=== PATIENT | female | born 1950 | race Caucasian/White ===

== ENCOUNTER 2021-05-11 09:58 | Outpatient (RCR) | payer MEDICARE, SELFPAY ==
--- NOTE | 2021-05-11 10:42 | PTOPEVAL ---
Thank you for referring MIKE PERALTA to [facility].? The patient is scheduled to be seen for therapy? ____x/week for ___ weeks. Please review, sign, date and return this plan of care BELEM. I agree with and certify that the following plan of care is medically necessary. Referring Physician Date Admitting Provider: Attending Provider: JODI CANO Referring Provider: [facility] Outpatient Evaluation Start: 05/11/21 10:08 Freq: Status: Active Protocol: Document 05/11/21 10:05 MAGGY (Rec: 05/11/21 10:41 MAGGY [email or web address]) Therapy Assessment Status Assessment Status Assessment Status Evaluation Evaluation Information Problem Diagnosis R knee pain, pre TKA Onset 05/08/21 Additional Evaluation Detail LEFS = 41% functionally declined Subjective Information patient reports she has been Query Text:As Reported By Patient/ having pain in the R knee for Family years. she reports she has put off having knee replacement for too long. she reports she is scheduled for surgery on . she reports she has family at home that will be able to care for her and get her to appointments after surgery. she reports she has difficulty with steps, walking for long distances, and riding a bike. Prior Level of Function Comments Additional Prior Level of Function patient reports she is active Comments and likes to ride her bike which she has not been able to do for more than a year. Pain Assessment Timing of Pain Assessment Timing of Pain Assessment Assessment Pain Scale Pain Scale Used Numeric (1 - 10) Self Report Pain Assessment Right Knee(s) Reported Pain Level 2 Greatest Pain Intensity 5 Pain Score Pain Score 2: Self Report Interventions Used Interventions Used By Clinicians Activity or ADL's,Medication Lower Extremity Range of Motion General Lower Extremity Range of Motion Gross Lower Extremity Range of Motion -6 degrees arom L knee ext Comments 126 degrees arom L knee flex -4 degrees arom R knee ext 121 degrees arom R knee flex Lower Extremity Muscle Strength Testing General Lower Extremity Strength Gross Lower Extremity Strength 4+/5 bilateral hip flex 5/5 L knee strength 4/5 R knee ext
--- NOTE | 2021-05-25 11:08 | PTOPEVAL ---
Thank you for referring MIKE PERALTA to [facility].? The patient is scheduled to be seen for therapy? ____x/week for ___ weeks. Please review, sign, date and return this plan of care BELEM. I agree with and certify that the following plan of care is medically necessary. Referring Physician Date Admitting Provider: Attending Provider: JODI CANO Referring Provider: KALA Outpatient Evaluation Start: 05/11/21 10:08 Freq: Status: Active Protocol: Document 05/25/21 10:11 [facility] (Rec: 05/25/21 11:07 [facility] [email or web address]) Therapy Assessment Status Assessment Status Assessment Status Re-evaluation Evaluation Information Problem Diagnosis R knee pain, pre TKA Onset 05/08/21 Additional Evaluation Detail LEFS = 42% functionally declined Subjective Information patient rpeorts she feels Query Text:As Reported By Patient/ pretty good this date. she Family reports she is still scheduled to have her R knee replaced on this coming Friday. Pain Assessment Timing of Pain Assessment Timing of Pain Assessment Assessment Pain Scale Pain Scale Used Numeric (1 - 10) Self Report Pain Assessment Right Knee(s) Reported Pain Level 1 Pain Score Pain Score 1: Self Report Interventions Used Interventions Used By Clinicians Activity or ADL's,Education, Exercise,Medication Lower Extremity Range of Motion General Lower Extremity Range of Motion Gross Lower Extremity Range of Motion -4 degrees AROM R knee ext Comments 122 degrees AROM R knee flex Lower Extremity Muscle Strength Testing General Lower Extremity Strength Gross Lower Extremity Strength 4+/5 R hip flex 5/5 R knee ext 4+/5 R knee flex 5/5 R ankle DF Muscle Length Testing Muscle Length Testing Left Hamstring Length 10 Query Text:(90 - 90 Position) Right Hamstring Length 10 Query Text:(90 - 90 Position) Gait Assessment Gait Assessment Additional Ambulation Comments patient ambulates with more equal stance time bilaterally this date. General Exercise General Exercises Exercise Description -nustep 10 minutes level 5 to Query Text:Record Sets, Reps, promote reciprocal gait Resistance, and Position mechanics and knee mobility, and to improve LE strength and endurance -heel and toe raises x30 each bilat -hip abd and ext x30 each
--- NOTE | 2021-05-30 10:55 | PTOPEVAL ---
Thank you for referring MKIE PERALTA to [facility].? The patient is scheduled to be seen for therapy? ____x/week for ___ weeks. Please review, sign, date and return this plan of care BELEM. I agree with and certify that the following plan of care is medically necessary. Referring Physician Date Admitting Provider: Attending Provider: JODI CANO Referring Provider: KALA Outpatient Evaluation Start: 05/11/21 10:08 Freq: Status: Active Protocol: Document 05/30/21 10:00 Shonda (Rec: 05/30/21 10:49 [facility] [email or web address]) Therapy Assessment Status Assessment Status Assessment Status Re-evaluation Evaluation Information Problem Diagnosis s/p R TKA Onset 05/29/21 Additional Evaluation Detail LEFS = 82% functionally declined Subjective Information patient had R TKA yesterday Query Text:As Reported By Patient. she reports last night Family she had quite a bit of pain, but reports today it is much less. she reports she has taken her pain meds today. she reports she follows up with her MD 2 weeks from 05/29/21. Pain Assessment Timing of Pain Assessment Timing of Pain Assessment Assessment Pain Scale Pain Scale Used Numeric (1 - 10) Self Report Pain Assessment Right Knee(s) Reported Pain Level 5 Pain Score Pain Score 5: Self Report Interventions Used Interventions Used By Clinicians Elevation,Ice,Rest Lower Extremity Range of Motion General Lower Extremity Range of Motion Gross Lower Extremity Range of Motion -7 degrees arom R knee Comments extension 93 degrees arom R knee flexion 95 degrees aarom R knee flexion with belt Lower Extremity Muscle Strength Testing General Lower Extremity Strength Gross Lower Extremity Strength unable to perform SLR of the R LE without significant extension lag of the knee. patient displays limited quad recruitment of the R thigh, but with cueing able to improve during quad set. 3-/5 R hip flex 3-/5 R knee ext 3+/5 R knee flex Muscle Length Testing Muscle Length Testing Left Hamstring Length 15 Query Text:(90 - 90 Position) Right Hamstring Length 30 Query Text:(90 - 90 Position) Palpation Assessment Palpation Palpation 41
--- NOTE | 2021-06-13 09:10 | PTOPEVAL ---
Thank you for referring MIKE PERALTA to [facility]. Please review, sign, date and return this plan of care BELEM. I agree with and certify that the following plan of care is medically necessary. Referring Physician Date Admitting Provider: Attending Provider: JODI CANO Referring Provider: *PT Outpatient Evaluation Start: 05/11/21 10:08 Freq: Status: Active Protocol: Document 06/13/21 07:55 ALO (Rec: 06/13/21 09:08 [facility]O [email or web address]) Therapy Assessment Status Assessment Status Assessment Status Progress Evaluation Information Problem Diagnosis s/p right TKA Onset 05/29/21 Subjective Information Pt. reports that she walked Query Text:As Reported By Patient/ down her driveway yesterday. Family She reports her knee is a little more stiff this morning after walking down the driveway. She notices she is going short distances without her cane. Pain Assessment Timing of Pain Assessment Timing of Pain Assessment Pre-Treatment Pain Scale Pain Scale Used Numeric (1 - 10) Self Report Pain Assessment Right Knee(s) Reported Pain Level 5 Pain Score Pain Score 5: Self Report Interventions Used Interventions Used By Clinicians Activity or ADL's,Exercise, Standing Lower Extremity Range of Motion General Lower Extremity Range of Motion Gross Lower Extremity Range of Motion Pt. achieves 3-104 degrees Comments right knee AAROM Extremity Circumference Assessment Circumference Assessment Location Right Site Descriptor ([place]) joint line Circumference (cm) 45 Circumference Comments 1cm decrease since initial evaluation Gait Assessment Gait Assessment Additional Ambulation Comments Pt. continues to navigate steps with step to pattern. She demonstrates decreased right stance time compared to the left. General Exercise General Exercises Exercise Description Ther Ex: Query Text:Record Sets, Reps, -heel raises and toe raises x Resistance, and Position 30 reps each -standing hip abduction x 25 reps bilateral -tandem stance on foam x 2 minutes bilateral -stair knee flexion stretch x 10 reps at 10 second holds -AAROM knee
--- NOTE | 2021-06-25 09:53 | PTOPEVAL ---
Thank you for referring MIKE PERALTA to [facility].? The patient is scheduled to be seen for therapy? ____x/week for ___ weeks. Please review, sign, date and return this plan of care BELEM. I agree with and certify that the following plan of care is medically necessary. Referring Physician Date Admitting Provider: Attending Provider: JODI CANO Referring Provider: KALA Outpatient Evaluation Start: 05/11/21 10:08 Freq: Status: Active Protocol: Document 06/25/21 08:34 ACR (Rec: 06/25/21 09:47 ACR [email or web address]) Therapy Assessment Status Assessment Status Assessment Status Progress Evaluation Information Problem Diagnosis R TKA Onset 05/29/21 Subjective Information Patient reports that her knee Query Text:As Reported By Patient/ is getting better, but she Family still has difficulty lifting her leg to get on the step, squatting to pick something up , and walking for a period of time. She states she has difficulty with getting out of any type of chair. Pain Assessment Timing of Pain Assessment Timing of Pain Assessment Pre-Treatment Pain Scale Pain Scale Used Numeric (1 - 10) Self Report Pain Assessment Right Knee(s) Reported Pain Level 3 Pain Score Pain Score 3: Self Report Interventions Used Interventions Used By Clinicians Activity or ADL's,Exercise Lower Extremity Range of Motion General Lower Extremity Range of Motion Gross Lower Extremity Range of Motion R knee AROM: 2-110 Comments Lower Extremity Muscle Strength Testing Knee Strength Right Knee Flexion Strength 5 Normal Knee Extension Strength 4 Good Gait Assessment Gait Assessment Additional Ambulation Comments Patient ambulates into the clinic with antalgia due to decreased stance time on the R and decreased heel strike on the R. General Exercise General Exercises Exercise Description - AAROM knee flexion and Query Text:Record Sets, Reps, extension x 8 minutes Resistance, and Position - patellar mobilization both inferior and superior x 5 minutes - step knee flexion stretch x 10 second holds x 10 reps - tandem stance on foam x 2 minutes bilateral to improve stability and strength - heel/toe raises x 30 each
== END 2021-07-23 15:29 | disposition home or self-care (01) ==
LOC: CHSPT 09:58
PROVIDERS: PCP Family Medicine
DX: M25.561 Pain in right knee (principal); M17.11 Unilateral primary osteoarthritis, right knee
CPT/HCPCS: 97014; 97016; 97110; 97112; 97161; 97530; G0283

== ENCOUNTER 2021-08-28 13:16 | Outpatient (RCR) | payer MEDICARE, SELFPAY ==
--- NOTE | 2021-08-28 13:57 | PTOPEVAL ---
Thank you for referring MIKE PERALTA to [facility].? The patient is scheduled to be seen for therapy? __2__x/week for 10 visits. Please review, sign, date and return this plan of care BELEM. I agree with and certify that the following plan of care is medically necessary. Referring Physician Date Admitting Provider: Attending Provider: JODI CANO Referring Provider: *PT Outpatient Evaluation Start: 08/28/21 13:00 Freq: Status: Active Protocol: Document 08/28/21 13:02 ALO (Rec: 08/28/21 13:54 ALO [email or web address]) Therapy Assessment Status Assessment Status Assessment Status Evaluation Evaluation Information Problem Diagnosis s/p right TKA Onset 05/29/21 Subjective Information Pt. reports she returned to Query Text:As Reported By Patient/ the doctor for 3 month check Family up and was having trouble getting out of a chair. She also noticed continued constant pain. She reports that she was given prednisone 6 days ago and pain has improved by 85%. She reports that she was also noticing difficulty doing a SLR. She states that her doctor was concerned with her quad strength and pt. goal is to improve her strength. Pain Assessment Timing of Pain Assessment Timing of Pain Assessment Pre-Treatment Pain Scale Pain Scale Used Numeric (1 - 10) Self Report Pain Assessment Right Knee(s) Reported Pain Level 1 Lowest Pain Intensity 1 Greatest Pain Intensity 4 Pain Score Pain Score 1: Self Report Interventions Used Interventions Used By Clinicians Activity or ADL's,Exercise Lower Extremity Range of Motion General Lower Extremity Range of Motion Gross Lower Extremity Range of Motion -right knee AROM 2-111 Comments -left knee AROM 0-128 degrees Lower Extremity Muscle Strength Testing General Lower Extremity Strength Gross Lower Extremity Strength -right hip flexion 4+/5 -left hip flexion 5/5 -right hip abduction 4-/5 -left hip abduction 4+/5 -right knee flexion 5/5 -left knee flexion 5/5 -right knee extension 4/5 -left knee extension 5/5 -bilateral ankle dorsiflexion 5/5
== END 2021-10-09 10:10 | disposition home or self-care (01) ==
LOC: CHSPT 13:16
DX: Z96.651 Presence of right artificial knee joint (principal); M25.561 Pain in right knee
CPT/HCPCS: 97110; 97161; 97530

== ENCOUNTER 2022-01-24 13:53 | Outpatient (RCR) | payer MEDICARE, SELFPAY ==
--- NOTE | 2022-01-24 14:58 | PTOPEVAL1 ---
Assessment and note entered by Adriana Ashley DPT Evaluation Information Assessment Status Evaluation Diagnosis L knee pain Onset 01/08/2022 Subjective Information Pt reports pain began on 01/08/2022. She was on her recumbent bike and slightly slid off the end of the seat. She felt her L knee get jolted. She reported swelling started 5-6 days after that and has remained. She reports some popping and cracking but none when the injury first happened. Pt reports that when she is sitting, she feels pain on the lateral portion of the joint but when she is weightbearing, she feels it in the joint. Pt reports most pain when walking or bearing weight. She first went to her family doctor first, then went to the ortho walk-in clinic and got an X-ray showing she was bone on bone. They recommended injection but she would have to wait since she just got one in December. They recommended a knee replacement but she is hesitant as her past knee was replaced and she still doesn't feel 100% on it. She reports some altered sensation in her L knee. Pt likes to work out at a gym and bike /walk on a treadmill. Reported Pain Level Pain Score 1: Self Report Assessment PT Clinical Summary Pt presents to physical therapy with L knee pain and demonstrates decreased mobility, decreased strength, increased edema, and an antalgic gait. Pt presents with potential differential diagnosis of L knee OA and L knee meniscal involvement. 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 She was provided with an HEP focused on improving mobility, strength, gait pattern, and edema within her tolerance. She will benefit from skilled PT to facilitate symptom relief, improve the aforementioned impairments, and return to functional and recreational activities. Plan of Care Interventions Electrical Stimulation,Gait Training,Hot Pack/Cold Pack,Manual Therapy,Neuro Re-education,Patient/ Caregiver Educati,Therapeutic Activities, Therapeutic Exercise PT Services Indicated Yes Treatment Frequency and 2x week for 12 visits Duration These treatments will address the objective and functional deficits as define
--- NOTE | 2022-02-21 08:54 | PTOPPROG ---
Assessment and note entered by Adriana Ashley DPT Evaluation Information Assessment Status Progress Diagnosis L knee pain Onset 01/08/2022 Subjective Information Pt reports continued pain in her knee. She notes improvements in her knee since starting PT but still has pain especially when initially standing up or standing for more than 15 min at a time. Assessment PT Clinical Summary Pt presents to physical therapy with significant improvements in knee ROM, swelling, LE strength, and gait pattern since her initial evaluation. While pain has improved, she is still experiencing pain in her knee when standing up and when standing for extended periods of time. She is also still limited in L knee extension ROM. She will benefit from additional skilled PT to further facilitate symptom relief, improve her mobility and tolerance to standing, and return to all functional and recreational activities. Plan of Care PT Services Indicated Yes Treatment Frequency and 2x week for remaining 3 scheduled visits Duration These treatments will address the objective and functional deficits as defined above. The patient will be advanced safely and appropriately in order for the patient to progress towards his/her prior level of function. Additional exercises will be introduced and as well as a comprehensive home exercise program upon discharge, if needed, ?to ensure carryover of functional gains achieved in the clinic. This treatment plan has been reviewed and agreement upon by the patient.
--- NOTE | 2022-03-05 09:02 | PTOPPROG ---
Assessment and note entered by Adriana Ashley DPT Evaluation Information Assessment Status Progress Diagnosis L knee pain Onset 01/08/2022 Subjective Information Pt reports that her pain in her L knee seems to have plateaued. She reports her knee is doing better since her initial evaluation but has not improved much recently. She still has a lot of trouble with walking, standing, and all weight- bearing activities for long periods of time. Pt has an ortho appointment on , 03/07 for a steroid injection and she is considering a total knee replacement. Assessment PT Clinical Summary Pt presents to physical therapy with improvements in L knee ROM and LE strength after 12 visits of skilled PT. She still experiences pain and demonstrates decreased TKE, antalgic gait, and decreased strength. She is scheduled for a follow- up appointment with her MD later this week and will benefit from skilled PT for an additional 4 visits at once a week to improve the aforementioned impairments after her scheduled injection and prior to a potential knee replacement. Plan of Care PT Services Indicated Yes Treatment Frequency and 1x week for 4 visits Duration These treatments will address the objective and functional deficits as defined above. The patient will be advanced safely and appropriately in order for the patient to progress towards his/her prior level of function. Additional exercises will be introduced and as well as a comprehensive home exercise program upon discharge, if needed, ?to ensure carryover of functional gains achieved in the clinic. This treatment plan has been reviewed and agreement upon by the patient.
== END 2022-04-01 14:42 | disposition home or self-care (01) ==
LOC: CHSPT 13:53
DX: M25.562 Pain in left knee (principal); Z47.1 Aftercare following joint replacement surgery; Z96.652 Presence of left artificial knee joint
CPT/HCPCS: 97014; 97016; 97110; 97161; 97530; G0283

== ENCOUNTER 2022-02-04 14:50 | Outpatient (CLI) | payer MEDICARE, SELFPAY | END 2022-02-04 14:51 | disposition home or self-care (01) | LOC: CHSLAB 14:55 | PROVIDERS: PCP Family Medicine; Visit Provider Nurse Practitioner | DX: B37.31 Acute candidiasis of vulva and vagina (principal); R30.0 Dysuria | CPT/HCPCS: 87086 ==

== ENCOUNTER 2022-04-04 14:55 | Outpatient (RCR) | payer MEDICARE, SELFPAY ==
--- NOTE | 2022-04-04 15:50 | PTOPEVAL1 ---
Assessment and note entered by Chitra Lynne, PT Evaluation Information Assessment Status Evaluation Diagnosis L TKA Onset 04/02/22 Subjective Information Melly Saunders reports she had a left total knee replacement on 04/02/22. She had to spend one night in the hospital due to high levels of pain because her block did take. She went home on 04/03. She reports she is getting around well since being home. She has two stairs to get in and out of the house which she reports is going well. She does not have stairs inside her home. She is using hydrocodone for pain relief. Reported Pain Level Pain Score 1: Self Report Assessment PT Clinical Summary Melly Saunders presents 2 days s/p left total knee arthroplasty. She is reporting mild to moderate left knee pain at rest and with bending motion. She has limitations in her sit to stand transfers and ambulation distance. She denies difficulty with ADLs in her home at this time. She objectively demonstrates left knee edema, decreased and painful left knee AROM, decreased left knee and hip strength, impaired gait, impaired balance, and decreased functional abilities. Her Tinetti score indicates she is at a moderate fall risk. She will benefit from skilled PT to address these limitations. Plan of Care Interventions Electrical Stimulation,Gait Training,Hot Pack/Cold Pack,Intermittent Compression,Manual Therapy, Neuro Re-education,Patient/Caregiver Educati, Therapeutic Activities,Therapeutic Exercise PT Services Indicated Yes Treatment Frequency and 3 times a week for 12 visits Duration These treatments will address the objective and functional deficits as defined above. The patient will be advanced safely and appropriately in order for the patient to progress towards his/her prior level of function. Additional exercises will be introduced and as well as a comprehensive home exercise program upon discharge, if needed, ?to ensure carryover of functional gains achieved in the clinic. This treatment plan has been reviewed and agreement upon by the patient.
--- NOTE | 2022-05-07 09:14 | PTOPPROG ---
Assessment and note entered by Adriana Ashley DPT Evaluation Information Assessment Status Progress Diagnosis L TKA Onset 04/02/22 Subjective Information Pt reports that her pain is significantly improving except for when getting up out of a chair or using stairs (up>down). Pt reports a lot of pain when sleeping still as she knows that she curls up in her sleep. She reports that the pain wakes her up a lot. Pt has a follow-up appointment with her MD at the beginning of June. Pt does also note some dizziness recently when getting in and out of bed. Assessment PT Clinical Summary Pt presents to PT with significant improvements in pain, range of motion, strength, and gait pattern since her initial evaluation. She continues to have some pain with sit to stands and using stairs , and continues to demonstrate difficulty with prolonged ambulation. She was also treated today for L posterior canalithiasis BPPV and denied symptom response after L Jeny x 2. She is likely to benefit from 6 additional visits of skilled PT to further facilitate symptom relief, improve the aforementioned impairments, and return to full functional and recreational activity participation . Plan of Care PT Services Indicated Yes Treatment Frequency and 1-2x week for 6 visits Duration These treatments will address the objective and functional deficits as defined above. The patient will be advanced safely and appropriately in order for the patient to progress towards his/her prior level of function. Additional exercises will be introduced and as well as a comprehensive home exercise program upon discharge, if needed, ?to ensure carryover of functional gains achieved in the clinic. This treatment plan has been reviewed and agreement upon by the patient.
--- NOTE | 2022-05-28 10:08 | PTOPPROG ---
Assessment and note entered by Chitra Lynne, PT Evaluation Information Assessment Status Progress Diagnosis L TKA Onset 04/02/22 Subjective Information Melly reports that her left knee is improving overall but she still has a lot of stiffness and pain when getting out of chairs and going up or down stairs. She also has difficulty sleeping due to pain. She is using Tramadol and Meloxicam for pain. She feels she will continue to benefit from skilled PT to continue addressing strength and range of motion. Assessment PT Clinical Summary Melly Saunders has completed 12 skilled PT visits following a left TKA performed on 04/02/22. She is reporting ongoing stiffness, pain, and difficulty with sit to stand transfers, stair negotiation, and sleeping. She objectively demonstrates improved left knee active and passive ROM, improved left LE strength, improved gait, and improved balance. Despite these improvements, she continues to have deficits in active ROM, gait, and functional strength of the LE. She will continue to benefit from skilled PT to further address these physical and functional limitations. Plan of Care Interventions Electrical Stimulation,Gait Training,Hot Pack/Cold Pack,Manual Therapy,Neuro Re-education,Patient/ Caregiver Educati,Therapeutic Activities, Therapeutic Exercise PT Services Indicated Yes Treatment Frequency and 2 times a week for 8 visits Duration These treatments will address the objective and functional deficits as defined above. The patient will be advanced safely and appropriately in order for the patient to progress towards his/her prior level of function. Additional exercises will be introduced and as well as a comprehensive home exercise program upon discharge, if needed, ?to ensure carryover of functional gains achieved in the clinic. This treatment plan has been reviewed and agreement upon by the patient.
== END 2022-06-25 17:02 | disposition home or self-care (01) ==
LOC: CHSPT 14:55
PROVIDERS: PCP Family Medicine
DX: Z47.1 Aftercare following joint replacement surgery (principal); Z96.652 Presence of left artificial knee joint
CPT/HCPCS: 97014; 97016; 97110; 97161; 97530; G0283

== ENCOUNTER 2023-03-06 08:16 | Outpatient (CLI) | payer MEDICARE, SELFPAY ==
[2023-03-06 08:37] LABS: Basophils Absolute Auto 0.03 K/mm3 (0.00-0.10); Basophils Percent Auto 0.6 % (0.0-1.0); Eosinophils Absolute Auto 0.07 K/mm3 (0.02-0.50); Eosinophils Percent Auto 1.4 % (1.0-6.0); Hematocrit 38.9 % (35.0-42.0); Hemoglobin 12.6 g/dL (11.7-13.8); Immature Granulocyte Absolute 0.02 K/mm3 (0.00-0.00); Immature Granulocyte Percent A 0.4 % (0.0-0.0); Lymphocytes Absolute Auto 0.89 K/mm3 (1.10-4.50); Lymphocytes Percent Auto 18.2 % (18.0-42.0); Mean Corpuscular HGB Conc 32.4 g/dL (32.0-36.0); Mean Corpuscular Hemoglobin 28.4 pg (27.0-31.0); Mean Corpuscular Volume 87.8 fL (78.0-102.0); Mean Platelet Volume 10.8 fl (9.2-11.8); Monocytes Absolute Auto 0.47 K/mm3 (0.10-0.90); Monocytes Percent Auto 9.6 % (2.0-11.0); Neutrophils Absolute Auto 3.4 K/mm3 (1.7-7.2); Neutrophils Percent Auto 69.8 % (50.0-70.0); Platelet Count Result 203 K/mm3 (150-420); Red Blood Count 4.43 M/mm3 (4.20-5.40); White Blood Count 4.9 K/mm3 (4.8-10.8)
[2023-03-06 09:07] LABS: CRP < 0.5 mg/dL (0.0-0.9)
[2023-03-06 09:40] LABS: Erythrocyte Sedimentation Rate 18 mm/hr (0-20)
== END 2023-03-06 08:17 | disposition home or self-care (01) ==
LOC: CHSLAB 08:21
PROVIDERS: PCP Family Medicine
DX: Z47.1 Aftercare following joint replacement surgery (principal); M25.569 Pain in unspecified knee
CPT/HCPCS: 36415; 85025; 85652; 86140

== ENCOUNTER 2023-03-10 09:08 | Outpatient (RCR) | payer MEDICARE, SELFPAY ==
--- NOTE | 2023-03-10 10:56 | OPREHPOC ---
Outpatient Therapy Plan of Care This is a Multidisciplinary Plan of Care that may contain components documented by all disciplines (PT, OT, and ST.) PT Problem 1 PT Problem #1 Knowledge Deficit PT Goal 1 Goal Patient to demonstrate independence with HEP Target Visit 4 PT Problem 2 PT Problem #2 Pain PT Goal 1 Goal Patient to report highest pain at 2/10 following house hold tasks Target Visit 16 PT Problem 3 PT Problem #3 Impaired Range of Motion PT Goal 1 Goal Patient to demonstrate ability to reach to the floor to improve ability to lift objects around the house Target Visit 16 PT Problem 4 PT Problem #4 Impaired Strength PT Goal 1 Goal Patient to demonstrate 5/5 B LE strength to return to prolonged ambulation without limitation due to pain Target Visit 16 PT Problem 5 PT Problem #5 Impaired Functional Mobil PT Goal 1 Goal 1. Patient to demonstrate 10 sit to stands with no use of UE 2. Patient to navigate 1 flight of stairs with step over step pattern Target Visit 16
--- NOTE | 2023-03-10 10:58 | PTOPEVAL1 ---
Assessment and note entered by Smita Torres DPT Evaluation Information Assessment Status Evaluation Diagnosis B knee pain, low back pain Onset 03/05/23 Subjective Information Patient reports last March she had a L TKA. She reports she is now having difficulty with getting up out of a chair, navigate stairs and ambulating on uneven surfaces. She reports that pain is on the top of the L thigh and feels like it might buckle . She had x-rays of B knees that were negative. She reports she also has had low back pain for about the last year. 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 Follow up with MD in 8 weeks. Reported Pain Level Pain Score 0,0,0: Self Report Assessment PT Clinical Summary Mrs. Saunders is a 72 year old female who presents to PT with B knee and low back pain. She demonstrates decreased lumbar flexion ROM, decreased L>R LE strength and impaired gait mechanics impaired her ability to navigate stairs, ambulate on uneven surfaces and stand up from a chair. She would benefit from skilled PT to address impairments and return to PLOF. Plan of Care Interventions Electrical Stimulation,Gait Training,Hot Pack/Cold Pack,Manual Therapy,Neuro Re-education,Patient/ Caregiver Educati,Therapeutic Activities, Therapeutic Exercise PT Services Indicated Yes Treatment Frequency and 2 x weekly for 16 visits Duration These treatments will address the objective and functional deficits as defined above. The patient will be advanced safely and appropriately in order for the patient to progress towards his/her prior level of function. Additional exercises will be introduced and as well as a comprehensive home exercise program upon discharge, if needed, ?to ensure carryover of functional gains achieved in the clinic. This treatment plan has been reviewed and agreement upon by the patient.
--- NOTE | 2023-04-10 11:57 | OPREHPOC ---
Outpatient Therapy Plan of Care This is a Multidisciplinary Plan of Care that may contain components documented by all disciplines (PT, OT, and ST.) PT Problem 1 PT Problem #1 Knowledge Deficit PT Goal 1 Goal Patient to demonstrate independence with HEP Target Visit 4 Progress Met PT Problem 2 PT Problem #2 Pain PT Goal 1 Goal Patient to report highest pain at 2/10 following house hold tasks -progress towards, continue Target Visit 16 Progress Partially Met PT Problem 3 PT Problem #3 Impaired Range of Motion PT Goal 1 Goal Patient to demonstrate ability to reach to the floor to improve ability to lift objects around the house -progress towards, continue Target Visit 16 Progress Partially Met PT Problem 4 PT Problem #4 Impaired Strength PT Goal 1 Goal Patient to demonstrate 5/5 B LE strength to return to prolonged ambulation without limitation due to pain -progress towards, continue Target Visit 16 Progress Partially Met PT Problem 5 PT Problem #5 Impaired Functional Mobil PT Goal 1 Goal 1. Patient to demonstrate 10 sit to stands with no use of UE -met 2. Patient to navigate 1 flight of stairs with step over step pattern -progress towards, continue Target Visit 16 Progress Partially Met
--- NOTE | 2023-04-10 11:57 | PTOPPROG ---
Assessment and note entered by Chitra Lynne, PT Evaluation Information Assessment Status Progress Diagnosis B knee pain, low back pain Onset 03/05/23 Subjective Information Melly Saunders reports she continues to have difficulty getting out of chairs and going up and down stairs. She feels she started to improve but then she started increasing her activity and that increased her knee pain on both sides. Overall, she feels she is about the same. In regards to her back, she is noting less pain but it still pinches every time she bends over. Assessment PT Clinical Summary Melly Saunders has completed 10 skilled PT visits for bilateral knee pain and low back pain. She is reporting minimal improvement since initiating PT noting she still has difficulty getting out of chairs and navigating stairs due to her knees and has pain in her lower back with bending at the waist. She objectively demonstrates improved bilateral knee AROM, lumbar flexion and extension AROM, LE strength, and gait. She continues to have deficits in functional strength with sit to stand and stairs as well as decreased core strength. She will continue to benefit from skilled PT to further address these limitations. Plan of Care Interventions Patient/Caregiver Educati,Therapeutic Activities, Therapeutic Exercise PT Services Indicated Yes Treatment Frequency and Continue current POC 2 times a week for 6 Duration additional visits These treatments will address the objective and functional deficits as defined above. The patient will be advanced safely and appropriately in order for the patient to progress towards his/her prior level of function. Additional exercises will be introduced and as well as a comprehensive home exercise program upon discharge, if needed, ?to ensure carryover of functional gains achieved in the clinic. This treatment plan has been reviewed and agreement upon by the patient.
--- NOTE | 2023-04-30 08:30 | PTOPDC ---
Assessment and note entered by Chitra Lynne, PT Evaluation Information Assessment Status Progress Diagnosis B knee pain, low back pain Onset 03/05/23 Subjective Information Melly Saunders reports she continues to have difficulty getting out of chairs and going up and down stairs. She feels she started to improve but then she started increasing her activity and that increased her knee pain on both sides. Overall, she feels she is about the same. In regards to her back, she is noting less pain but it still pinches every time she bends over. Assessment PT Clinical Summary Melly Saunders has completed 10 skilled PT visits for bilateral knee pain and low back pain. She is reporting minimal improvement since initiating PT noting she still has difficulty getting out of chairs and navigating stairs due to her knees and has pain in her lower back with bending at the waist. She objectively demonstrates improved bilateral knee AROM, lumbar flexion and extension AROM, LE strength, and gait. She continues to have deficits in functional strength with sit to stand and stairs as well as decreased core strength. She will continue to benefit from skilled PT to further address these limitations. Plan of Care PT Services Indicated Yes
== END 2023-04-30 20:00 | disposition home or self-care (01) ==
LOC: CHSPT 09:08
DX: Z47.1 Aftercare following joint replacement surgery (principal); Z96.653 Presence of artificial knee joint, bilateral
CPT/HCPCS: 97110; 97112; 97161; 97530

== ENCOUNTER 2023-06-24 08:06 | Outpatient (RCR) | payer MEDICARE, SELFPAY ==
--- NOTE | 2023-06-24 09:35 | OPREHPOC ---
Outpatient Therapy Plan of Care This is a Multidisciplinary Plan of Care that may contain components documented by all disciplines (PT, OT, and ST.) PT Problem 1 PT Problem #1 Knowledge Deficit PT Goal 1 Goal 1. independent and compliant with HEP Target Visit 2 PT Problem 2 PT Problem #2 Impaired Strength PT Goal 1 Goal 1. 4+/5 or better bilateral hip strength with no extension lag. 2. 5/5 bilateral knee strength 3. patient to achieve 140lbs or better bilateral single leg press test Target Visit 4 PT Problem 3 PT Problem #3 Impaired Functional Mobil PT Goal 1 Goal 1. patient to perform SLR bilaterally without extension lag. 2. LEFS to display less than 30% functional deficits Target Visit 4
--- NOTE | 2023-06-24 09:35 | PTOPEVAL1 ---
Assessment and note entered by JT File, PT Evaluation Information Assessment Status Evaluation Diagnosis L knee pain, s/p L TKA Onset 06/18/23 Subjective Information patient reports she still has a lag in the L LE. she reports she has this lag during SLR of the L LE. she reports she had a nerve conduction test done of the LE and it was negative. she reports she returned to the surgeon's office who suggested she return to skilled PT for further strengthening. she reports she is a little confused on why she needs the knee not to lag, and reports the MD suggested the next step would be to have an MRI of the lower back. she reports she has no pain in the knees other than when she does sit to stands or stairs. she reports the pain does not last, but is present only while completing the activity. she reports she does exercises for her back at home, leg lifts in supine, SAQ, sit to stands all at home. she reports she also attends a gym where she does the bike, treadmill, and eliptical. she reports she is not doing any weighted resistance exercises at the gym. Reported Pain Level Pain Score 0: Self Report Additional Pain Score Comments she reports she takes meloxicam every day. Assessment PT Clinical Summary mrs. capps is a 72 yo woman who presents to skilled PT services for evaluation and treatment of L LE weakness. she presents today with weakness of the bilateral LE's (worse on the L) and deficits in achieving terminal knee extension during SLR and closed chain exercises. she ambulates with normal gait mechanics, but displays weakness of the LE's via MMT and leg press testing. she would benefit from continued skilled PT intervention and education to increase strength and stability of the L and R LE to improve quality of life and decrease the likelihood of falling due to knee instability in the future. Plan of Care Interventions Manual Therapy,Neuro Re-education,Patient/ Caregiver Educati,Therapeutic Activities, Therapeutic Exercise PT Services Indicated Yes Treatment Frequency and 1x weekly for 4 visits Duration These treatments will address the objective and functional deficits as defined above. The patient will be advanced safely and appropriately in order for the patient to progress towards his/her prior level of function. Additional exercises will be introduced and as well as a comprehensive home exercise program upon discharge, if nee
--- NOTE | 2023-07-15 10:12 | OPREHPOC ---
Outpatient Therapy Plan of Care This is a Multidisciplinary Plan of Care that may contain components documented by all disciplines (PT, OT, and ST.) PT Problem 1 PT Problem #1 Knowledge Deficit PT Goal 1 Goal 1. independent and compliant with HEP. met Target Visit 2 Progress Met PT Problem 2 PT Problem #2 Impaired Strength PT Goal 1 Goal 1. 4+/5 or better bilateral hip strength with no extension lag. not met 2. 5/5 bilateral knee strength. not met 3. patient to achieve 140lbs or better bilateral single leg press test. not met Target Visit 4 Progress Not Met PT Problem 3 PT Problem #3 Impaired Functional Mobil PT Goal 1 Goal 1. patient to perform SLR bilaterally without extension lag. not met 2. LEFS to display less than 30% functional deficits. not met Target Visit 4 Progress Not Met
--- NOTE | 2023-07-15 10:12 | PTOPDC ---
Assessment and note entered by JT File, PT Evaluation Information Assessment Status Discharge Diagnosis L knee pain, s/p L TKA Onset 06/18/23 Subjective Information patient reports she feels Alright today. she reports she has been battling a cold the past few days. she reports after her last session, it took her several days to recover. she reports the knee feels okay today. she reports it feels about the same since she started back in PT. Reported Pain Level Pain Score 2: Self Report Assessment PT Clinical Summary mrs. capps presents to skilled PT services for her 4th skilled therapy session this round. she has only met goal for HEP. her therapy has consisted of exercises and activities to improve her knee terminal extension strength, LE strength overall, and ambulation/stair mechanics. she will be DC'd from skilled PT services today due to a lack of significant improvement/progress made in skilled PT. she will continue with exercises independent at home and at the gym. Plan of Care PT Services Indicated Yes
== END 2023-07-15 11:24 | disposition home or self-care (01) ==
LOC: CHSPT 08:06
DX: T84.84XD Pain due to internal orthopedic prosthetic devices, implants and grafts, subsequent encounter (principal); Z96.652 Presence of left artificial knee joint
CPT/HCPCS: 97110; 97161; 97530

== ENCOUNTER 2023-10-17 12:47 | Outpatient (CLI) | payer MEDICARE, SELFPAY ==
[2023-10-17 14:03] LABS: CRP < 0.5 mg/dL (0.0-0.9)
[2023-10-17 14:52] LABS: Erythrocyte Sedimentation Rate 13 mm/hr (0-20)
== END 2023-10-17 12:48 | disposition home or self-care (01) ==
DX: Z96.652 Presence of left artificial knee joint (principal)
CPT/HCPCS: 36415; 85652; 86140